=== PATIENT | male | born 1990 | race Caucasian/White ===

== ENCOUNTER 2018-02-21 11:00 | Inpatient (IN) ==
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
[2018-02-21] MEDS ORDERED: LORazepam 1 MG Tablet PO ONE (12:02)
[2018-02-21 12:20] LABS: Baso # (Auto) 0.1 th/mm3 (0.0-0.2); Baso % (Auto) 0.7 % (0.0-2.0); Eos # (Auto) 0.1 th/mm3 (0.0-0.4); Eos % (Auto) 1.5 % (0.0-4.0); Hematocrit 43.1 % (39.0-51.0); Hemoglobin 14.8 gm/dL (13.0-17.0); Lymph # (Auto) 1.9 th/mm3 (1.0-4.8); Lymph % (Auto) 25.6 % (9.0-44.0); Mean Corpuscular HGB Conc 34.3 % (32.0-36.0); Mean Corpuscular Hemoglobin 31.2 pg (27.0-34.0); Mean Corpuscular Volume 91.1 fL (80.0-100.0); Mean Platelet Volume 7.8 fL (7.0-11.0); Mono # (Auto) 0.4 th/mm3 (0.0-0.9); Mono % (Auto) 5.7 % (0.0-8.0); Neut % (Auto) 66.5 % (16.0-70.0); Platelet Count 236 th/mm3 (150-450); Red Blood Count 4.73 mil/mm3 (4.50-5.90); Red Cell Distribution Width 12.9 % (11.6-17.2); White Blood Count 7.5 th/mm3 (4.0-11.0)
[2018-02-21 12:28] LABS: Amphetamine Screen,Urine Neg (Neg); Barbiturate Screen,Urine Neg (Neg); Cannabinoid Screen,Urine Pos (Neg); Cocaine Screen,Urine Neg (Neg)
[2018-02-21 12:34] LABS: Opiate Screen,Urine Neg (Neg)
[2018-02-21 12:54] LABS: Alanine Aminotransferase 31 U/L (12-78); Alkaline Phosphatase 44 U/L (45-117); Thyroid Stimulating Hormone 0.924 uIU/mL (0.358-3.740); Total Protein 7.9 g/dL (6.4-8.2)
[2018-02-21 12:55] LABS: Albumin 4.3 g/dL (3.4-5.0); Anion Gap 5 meq/L (5-15); Aspartate Aminotransferase 19 U/L (15-37); Blood Urea Nitrogen 17 mg/dL (7-18); Calcium 9.2 mg/dL (8.5-10.1); Carbon Dioxide 27.8 meq/L (21.0-32.0); Chloride 108 meq/L (98-107); Glomerular Filtration Rate 85 mL/min (>89); Glucose,Random 92 mg/dL (74-106); Magnesium 2.3 mg/dL (1.5-2.5); Potassium 3.9 meq/L (3.5-5.1); Sodium 141 meq/L (136-145)
[2018-02-21] MEDS ORDERED: Aluminum/Magnesium/Simethacone Susp 30 ML UDC PO PRN (18:32)
[2018-02-21] MEDS ORDERED: Bisacodyl 10 MG Supp RECTAL PRN (18:32)
[2018-02-21] MEDS: Senna/Docusate Sodium 8.6/50 MG Tablet PO SCH (21:29)
[2018-02-22] MEDS: Senna/Docusate Sodium 8.6/50 MG Tablet PO SCH ×2 (09:07→20:27)
[2018-02-22 10:02] LABS: Calcium 9.2 mg/dL (8.5-10.1); Carbon Dioxide 29.4 meq/L (21.0-32.0)
[2018-02-22 10:18] LABS: Chol/HDL Ratio 3.29 Ratio; HDL Cholesterol 50.1 mg/dL (40.0-60.0)
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
[2018-02-22 13:19] LABS: Hemoglobin A1c 5.5 % (4.3-6.0)
[2018-02-22] MEDS: Escitalopram 10 MG Tablet PO SCH (15:02)
[2018-02-23] MEDS: Escitalopram 10 MG Tablet PO SCH (08:48)
[2018-02-23] MEDS: Senna/Docusate Sodium 8.6/50 MG Tablet PO SCH ×2 (08:48→22:00)
--- NOTE | 2018-02-23 14:08 | P.PNPSY ---
Subjective Chief Complaint: paranoia Remarks: February 23 2018 Subjective: Patient states that he feels the Risperdal 1 mg twice daily has improved his the auditory and visual hallucinations. He feels it has additionally reduce his paranoid views. Discussed with the patient increasing the dosage. Patient was seen and reviewed at length and discussed with charge nursing staff. Review of Systems February 23, 2018 ROS: Patient has no physical complaints other than anxiety which he feels is diminishing. Mental Status Examination Appearance: Disheveled Consciousness: Alert Orientation: x4 Motor Activity: Normal gait Speech: Unremarkable Language: Adequate Fund of Knowledge: Adequate Attention and Concentration: Adequate Memory: Unremarkable Mood: Sad Affect: Blunt Thought Process & Associations: Intact Thought Content: Bizarre thinking, Ideas of reference, Hallucinations, Delusional Hallucination Type: Auditory, Visual Delusion Type: Paranoid (Greatly diminished today) Suicidal Ideation: No Suicidal Plan: No Suicidal Intention: No Homicidal Plan: No Homicidal Intention: No Insight: Adequate Judgment: Adequate Assessment and Plan - Assessment (1) Schizoaffective disorder, depressive type Code(s): F25.1 - Schizoaffective disorder, depressive type Status: Acute - Plan Plan: Increased dosage of Risperdal to 3 mg at at bedtime Justification for Continued Inpatient Stay: Patient would decompensate at a lower level of care.
[2018-02-23 18:21] VITALS: RESP 16; O2SAT 98
[2018-02-24 06:07] VITALS: BP 139/76; PULSE 62; TEMP 97.3
[2018-02-24] MEDS: Senna/Docusate Sodium 8.6/50 MG Tablet PO SCH (08:51)
[2018-02-24] MEDS: Escitalopram 10 MG Tablet PO SCH (08:51)
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
== END 2018-02-24 14:35 | disposition home or self-care (01) | DRG 885 ==
LOC: NEPK 11:00 → NEDA 18:38 → H260 20:02
PROVIDERS: ADMIT Psychiatry & Neurology Child & Adolescent Psychiatry; ATTEND Psychiatry & Neurology Child & Adolescent Psychiatry